=== PATIENT | male | born 1960 | race African-American/Black ===

== ENCOUNTER 2018-03-10 13:37 | Outpatient (CLI) | payer OTHER | END 2018-03-10 13:38 | disposition home or self-care (01) | LOC: BICRAD 13:37 | PROVIDERS: ATTEND Internal Medicine | DX: Z02.71 Encounter for disability determination (principal); M16.12 Unilateral primary osteoarthritis, left hip; M47.896 Other spondylosis, lumbar region; Z96.641 Presence of right artificial hip joint; Z98.890 Other specified postprocedural states | CPT/HCPCS: 72100 ==

== ENCOUNTER 2024-09-03 10:45 | Emergency (ER) | payer MEDICARE ==
[~2024-09-03 10:45] MED LIST: Iopamidol-370 76% 500 ML MDV (1 ML CHARGE) ONE
[2024-09-03 11:26] LABS: Bacteria/HPF None Seen HPF (None Seen); Bilirubin Negative (Negative); Blood, Urine 2+ (Negative); CAUTI Indications for Culture Pelvic or flank pain; Clarity Clear (Clear); Glucose, Urine (Dipstick) Normal (Negative); Ketone, Urine Negative (Negative); Leukocyte 25 Leu/uL (Negative); Nitrite Negative (Negative); Protein, Urine (Dipstick) Negative (Neg-Trace); RBC/HPF 21-50 HPF (0-3); Specific Gravity, Urine 1.012 (1.002-1.036); Squamous Epithelial None Seen HPF (0-3); Urobilinogen Normal mg/dL (Less than 2); pH, Urine 6.5 (5.0-9.0)
[2024-09-03 11:27] LABS: Urine Culture Reflex No No
[2024-09-03 11:28] LABS: Hematocrit 46.9 % (42.0-52.0); Hemoglobin 15.6 g/dL (14.0-18.0); Mean Corpuscular HGB CONC 33.3 g/dL (32.0-36.0); Mean Corpuscular Hemoglobin 31.8 pg (27.0-31.0); Mean Corpuscular Volume 95.7 fL (78.0-98.0); Mean Platelet Volume 11.4 fL (7.4-10.4); Platelet Count 170 10x3/uL (130-400); RBC Distribution Width 14.2 % (11.5-14.5)
[2024-09-03] MEDS ORDERED: Ondansetron PF 4 MG/2 ML Vial ONE ×2 (11:33→12:20)
[2024-09-03] MEDS ORDERED: Morphine 4 MG/ML VIAL ONE (11:33)
[2024-09-03 11:57] LABS: ALT (SGPT) 19 U/L (8-55); AST (SGOT) 18 U/L (5-34); Albumin 4.1 g/dL (3.4-4.8); Alkaline Phosphatase 71 U/L (40-110); Anion Gap 16 mmol/L (10-20); BUN (Urea Nitrogen) 10 mg/dL (8.4-25.7); Bilirubin, Total 0.7 mg/dL (0.2-1.2); Calc. Creatinine Clearance 0 mL/min (70-130); Calcium 9.8 mg/dL (7.8-10.44); Carbon Dioxide 20 mmol/L (23-31); Chloride 109 mmol/L (98-107); Estimated GFR 73; Globulin 3.2 g/dL (2.4-3.5); Glucose 140 mg/dL (80-115); Lipase 21 U/L (8-78); Potassium 3.7 mmol/L (3.5-5.1); Protein, Total 7.3 g/dL (5.8-8.1); Sodium 141 mmol/L (136-145)
[2024-09-03] MEDS ORDERED: Morphine 2 MG/ML VIAL ONE (12:16)
[2024-09-03 12:21] LABS: Troponin I Less than 0.010 ng/mL (< 0.028)
[2024-09-03 12:27] LABS: Eosinophils 2 % (0-10); Lymphocytes 22 % (21-51); Monocytes 4 % (0-10); Neutrophil 70 % (42-75); Platelet Adequacy Comment Platelets Normal; Polychromasia SLIGHT = 2-3 cells HPF (0-2); Reactive Lymphocytes 2 % (0-10)
[2024-09-03] MEDS ORDERED: Ketorolac Tromethamine 30 MG (1 mL) VIAL ONE (12:49)
== END 2024-09-03 12:57 | disposition home or self-care (01) ==
LOC: ERS 10:45
DX: N13.2 Hydronephrosis with renal and ureteral calculous obstruction (principal); I10 Essential (primary) hypertension; Z55.6 Problems related to health literacy; F17.290 Nicotine dependence, other tobacco product, uncomplicated
CPT/HCPCS: 74177; 80053; 81001; 83690; 84484; 85025; 93005; J1885; J2272 ×2; J2405; 36415; 96361; 96374; 96375; 96376; Q9967